=== PATIENT | male | born 1975 | race Caucasian/White ===

== ENCOUNTER 2021-03-26 08:28 | Outpatient (CLI) | payer BC | END 2021-03-26 08:29 | disposition home or self-care (01) | LOC: CSHCT 08:28 | PROVIDERS: ATTEND Internal Medicine Hematology & Oncology | DX: C18.7 Malignant neoplasm of sigmoid colon (principal); N20.0 Calculus of kidney; K76.0 Fatty (change of) liver, not elsewhere classified | CPT/HCPCS: 71260; 74177 ==

== ENCOUNTER 2021-09-17 09:34 | Outpatient (CLI) | payer BC | END 2021-09-17 09:35 | disposition home or self-care (01) | LOC: CSHCT 09:34 | PROVIDERS: ATTEND Internal Medicine Hematology & Oncology | DX: Z85.038 Personal history of other malignant neoplasm of large intestine (principal) | CPT/HCPCS: 71260; 74177 ==

== ENCOUNTER 2022-04-01 08:43 | Outpatient (CLI) | payer BC ==
[2022-04-01] MEDS ORDERED: Iopamidol 300 61% 100 ML VIAL FS ONE (10:43)
== END 2022-04-01 08:44 | disposition home or self-care (01) ==
LOC: CSHCT 08:43
PROVIDERS: ATTEND Internal Medicine Hematology & Oncology
DX: C18.7 Malignant neoplasm of sigmoid colon (principal)
CPT/HCPCS: 71260; 74177; 82565; Q9967

== ENCOUNTER 2022-09-16 08:46 | Outpatient (CLI) | payer BC ==
[2022-09-16] MEDS ORDERED: Iopamidol 300 61% 100 ML VIAL FS ONE (09:41)
== END 2022-09-16 08:47 | disposition home or self-care (01) ==
LOC: CSHCT 08:46
PROVIDERS: ATTEND Internal Medicine Hematology & Oncology
DX: C18.7 Malignant neoplasm of sigmoid colon (principal); K76.0 Fatty (change of) liver, not elsewhere classified; N20.0 Calculus of kidney; Z98.890 Other specified postprocedural states
CPT/HCPCS: 71260; 74177; Q9967

== ENCOUNTER 2023-09-08 08:36 | Outpatient (CLI) | payer BC ==
[2023-09-08] MEDS ORDERED: Iopamidol 300 61% 100 ML VIAL FS ONE (10:43)
== END 2023-09-08 08:37 | disposition home or self-care (01) ==
LOC: CSHCT 08:36
PROVIDERS: ATTEND Internal Medicine Hematology & Oncology
DX: C18.7 Malignant neoplasm of sigmoid colon (principal)
CPT/HCPCS: 71260; 74177; Q9967

== ENCOUNTER 2024-11-29 08:36 | Outpatient (CLI) | payer BC ==
[2024-11-29] MEDS ORDERED: Iopamidol 300 61% 100 ML VIAL FS ONE (13:38)
== END 2024-11-29 08:37 | disposition home or self-care (01) ==
LOC: CSHCT 08:36
PROVIDERS: ATTEND Internal Medicine Hematology & Oncology
DX: C18.7 Malignant neoplasm of sigmoid colon (principal); D50.0 Iron deficiency anemia secondary to blood loss (chronic); E66.9 Obesity, unspecified
CPT/HCPCS: 71260; 74177; Q9967